=== PATIENT | female | born 2000 ===

== ENCOUNTER 2018-04-24 22:29 | Emergency (ER) | payer SELFPAY ==
[2018-04-24 22:38] VITALS: BP 118/81; PULSE 86; RESP 20; TEMP 98.2; O2SAT 99
--- NOTE | 2018-04-24 23:35 | C.PDOC ---
History Of Present Illness 17 year old female presents to the ER with a complaint of an intermittent frontal and left sided headache associated with intermittent blurry vision to the left eye for the past 9 days. Patient states she works at [email or web address] and while she was taking down a box from a metal tube being used as a shelf, the box and the tube both fell on her head. She notes also having some neck pain. Denies LOC, weakness, numbness, nausea, or vomiting. She has not taken anything for the pain. Time Seen by Provider: 04/24/18 22:41 Chief Complaint (Nursing): Headache History Per: Patient History/Exam Limitations: no limitations Onset/Duration Of Symptoms: Days (9), Intermittent Episodes Current Symptoms Are (Timing): Still Present Preceeding Symptoms: None Associated Symptoms: Blurred Vision (Left eye). denies: Nausea, Vomiting Recent travel outside of the [place]: No Past Medical History Reviewed: Historical Data, Nursing Documentation, Vital Signs Vital Signs: Last Vital Signs Temp 98.2 F 04/24/18 22:36 Pulse 86 04/24/18 22:36 Resp 20 04/24/18 22:36 BP 118/81 04/24/18 22:36 Pulse Ox 99 04/24/18 22:36 Family History: States: Unknown Family Hx - Social History Hx Alcohol Use: No Hx Substance Use: No Review Of Systems Eyes: Positive for: Vision Change (Blurred left eye) Gastrointestinal: Negative for: Nausea, Vomiting Musculoskeletal: Positive for: Neck Pain Neurological: Positive for: Headache. Negative for: Weakness, Numbness Physical Exam - Physical Exam Appears: Non-toxic Skin: Warm, Dry Head: Normacephalic, Abrasion (Small healed abrasion to left lateral zygomatic arch w/ mild tenderness, no crepitus) Eye(s): bilateral: Normal Inspection, PERRL, EOMI Oral Mucosa: Moist Neck: No Midline Cervical Tenderness, Paracervical Tenderness (Mild bilateral), Supple Extremity: Normal ROM (x4) Neurological/Psych: Oriented x3, Normal Speech, Normal Cranial Nerves, Normal Motor, Normal Sensation Gait: Steady ED Course And Treatment O2 Sat by Pulse Oximetry: 99 Medical Decision Making Medical Decision Making: pt is 9 days s/p box and piece of metal falling on her head; c/o intermittent heradaches and blurred vision in left eye when she smith headache. will give tylenol. get ct head, tx for concussion Disposition - Disposition Disposition: HOME/ ROUTINE Condition: GOOD Instructions: Postconcussion Syndrome (DC) Forms: [facility] (Japanese) - Clinical Impression Clinical Impression: Closed head injury - PA / ACCOUNT ASSISTANT / Resident Statement MD/DO has reviewed & agrees with the documentation as recorded. - Scribe Statement The provider has reviewed the documentation as recorded by the Scribe Kyree Tellez All medical record entries made by the Scribe were at my direction and personally dictated by me. I have reviewed the chart and agree that the record accurately reflects my personal performance of the history, physical exam, medical decision making, and the department course for this patient. I have also personally directed, reviewed, and agree with the discharge instructions and disposition.
--- NOTE | 2018-04-25 08:44 | CT ---
Date of service: 04/24/2018 PROCEDURE: CT HEAD WITHOUT CONTRAST. HISTORY: headache. box fell on head COMPARISON: Not available TECHNIQUE: Axial computed tomography images were obtained through the head/brain without intravenous contrast. Radiation dose: Total exam DLP = 981.41 mGy-cm. This CT exam was performed using one or more of the following dose reduction techniques: Automated exposure control, adjustment of the mA and/or kV according to patient size, and/or use of iterative reconstruction technique. FINDINGS: HEMORRHAGE: No intracranial hemorrhage. BRAIN: No mass effect or edema. No atrophy or chronic microvascular ischemic changes. VENTRICLES: Unremarkable. No hydrocephalus. CALVARIUM: Unremarkable. PARANASAL SINUSES: There is chronic sphenoid sinusitis. The remaining visualized paranasal sinuses are unremarkable. MASTOID AIR CELLS: Unremarkable as visualized. No inflammatory changes. OTHER FINDINGS: None. IMPRESSION: No intracranial hemorrhage. Chronic sphenoid sinusitis. Otherwise unremarkable examination. The preliminary findings for this examination were reported by [facility] at 12:09 a.m. on 04/25/2018. There is concurrence of this report with the preliminary findings.
== END 2018-04-25 00:59 | disposition home or self-care (01) ==
LOC: C.ER 22:29
DX: S09.90XA Unspecified injury of head, initial encounter (principal); W22.8XXA Striking against or struck by other objects, initial encounter; Y92.89 Other specified places as the place of occurrence of the external cause; Y99.0 Civilian activity done for income or pay